=== PATIENT | male | born 1965 | race Caucasian/White ===

== ENCOUNTER 2016-10-19 09:05 | Inpatient (IN) | payer MEDICARE, MEDICAID ==
[~2016-10-19] VITALS: Ht 175.3 cm; Wt 83.1 kg
[2016-10-19] MEDS ORDERED: ASPIRIN 325MG EC TABLET PO ONE (10:00)
[2016-10-19] MEDS ORDERED: MORPHINE SULFATE 4 MG/ML CPJ (NOT FOR IM USE) IV ONE (10:00)
[2016-10-19] MEDS ORDERED: NITROGLYCERIN 0.4MG TABLET SL SL ONE (10:00)
[2016-10-19 10:03] LABS: BASOPHILS % 0.8 % (0.0-2.0); EOSINOPHILS % 2.8 % (0.0-5.0); HEMATOCRIT. 28.7 % (42.0-52.0); HEMOGLOBIN. 9.6 g/dL (14.0-18.0); LYMPHOCYTES % 20.4 % (20.0-50.0); MEAN CORPUSCULAR HEMOGLOBIN 32.5 pg (28.0-32.0); MONOCYTES % 11.9 % (2.0-8.0); NEUTROPHILS % 64.1 % (40.0-76.0); PLATELET 186 x1000/uL (130-400); RED BLOOD CELL COUNT 2.96 mill/uL (4.7-6.1); RED CELL DISTRIBUTION WIDTH 17.3 % (11.6-14.6)
[2016-10-19 10:05] LABS: INR 1.1; PARTIAL THROMBOPLASTIN TIME 34.1 sec (24.0-34.0); PROTHROMBIN TIME 11.5 sec
[2016-10-19 10:14] LABS: CARBON DIOXIDE 24 mEq/L (21-32); CHLORIDE 101 mEq/L (98-107); TROPONIN I 0.04 ng/mL (0.00-0.04)
[2016-10-19 13:00] VITALS: BP 148/91
[2016-10-19] MEDS ORDERED: CLONIDINE 0.1MG TABLET PO PRN (13:45)
[2016-10-19] MEDS ORDERED: DIPHENHYDRAMINE 50MG/ML VIAL IV PRN (13:45)
[2016-10-19] MEDS ORDERED: HYDROCODONE/ACETAMINOPHEN 5/325MG TABLET PO PRN (13:45)
[2016-10-19] MEDS ORDERED: GUAIFENESIN 200MG/10ML SUGAR FREE UDC PO PRN (13:45)
[2016-10-19] MEDS ORDERED: ACETAMINOPHEN 325MG TABLET PO PRN (13:45)
[2016-10-19] MEDS ORDERED: DOCUSATE SODIUM 100MG CAPSULE PO PRN (13:45)
[2016-10-19] MEDS ORDERED: ONDANSETRON HCL 4MG/2ML VIAL IV PRN (13:45)
[2016-10-19] MEDS ORDERED: IPRATROPIUM/ALBUTEROL 0.5-3(2.5)MG/3ML NEB INH PRN (13:45)
[2016-10-19] MEDS ORDERED: MAGNESIUM/ALUMINUM HYDROXIDE/SIMETHICONE 30ML UDC PO PRN (13:45)
[2016-10-19] MEDS ORDERED: SODIUM POLYSTYRENE SULFONATE 15 G/60 ML BOT PO SCH (14:00)
[2016-10-19] MEDS ORDERED: OMEP20CA10 PO (15:10)
[2016-10-19] MEDS ORDERED: ALLO100T PO (15:10)
[2016-10-19] MEDS ORDERED: TAMS0.4C31 PO (15:10)
[2016-10-19] MEDS ORDERED: METO50TA5 PO (15:10)
[2016-10-19] MEDS ORDERED: ZOLP10TA2 PO (15:10)
[2016-10-19] MEDS ORDERED: NEPVIT PO (15:10)
[2016-10-19] MEDS ORDERED: MEGE400O PO ×2 (15:11→15:22)
[2016-10-19] MEDS ORDERED: ASPI-1159 PO (15:21)
[2016-10-19] MEDS ORDERED: CINA30 PO (15:21)
[2016-10-19] MEDS ORDERED: AMLO10TA80 PO (15:21)
[2016-10-19] MEDS ORDERED: SEVE800T8 PO (15:21)
[2016-10-19] MEDS ORDERED: ZOLPIDEM TARTRATE 5MG TABLET PO PRN (15:45)
[2016-10-19 16:00] VITALS: BP 131/78
[2016-10-19] MEDS: SEVELAMER CARBONATE 800 MG TABLET PO SCH (16:58)
[2016-10-19] MEDS: FOLIC ACID/VITAMIN B COMP W-C TABLET PO SCH (16:58)
[2016-10-19 17:26] LABS: TROPONIN I 0.03 ng/mL (0.00-0.04)
[2016-10-19 17:27] LABS: CREATINE KINASE MB FRACTION 1.4 ng/mL (0.5-3.6)
[2016-10-19 20:00] VITALS: BP 155/102
[2016-10-19] MEDS ORDERED: OMEPRAZOLE 20MG CAPSULE EXTENDED RELEASE PO SCH (21:00)
[2016-10-20] VITALS: BP 159/105
[2016-10-20] MEDS: METOPROLOL TARTRATE 50MG TABLET PO SCH ×3 (00:44→20:54)
[2016-10-20] MEDS: AMLODIPINE 5MG TABLET PO SCH ×3 (00:45→20:54)
[2016-10-20 01:46] LABS: CREATINE KINASE MB FRACTION 1.4 ng/mL (0.5-3.6); TROPONIN I 0.03 ng/mL (0.00-0.04)
[2016-10-20 04:00] VITALS: BP 155/97
[2016-10-20 07:05] LABS: BASOPHILS % 0.9 % (0.0-2.0); EOSINOPHILS % 4.6 % (0.0-5.0); HEMATOCRIT. 29.9 % (42.0-52.0); LYMPHOCYTES % 19.2 % (20.0-50.0); MEAN CORPUSCULAR HEMOGLOBIN 32.4 pg (28.0-32.0); MEAN CORPUSCULAR VOLUME 96.6 fL (80.0-94.0); MEAN PLATELET VOLUME 9.5 fl (7.4-10.4); MONOCYTES % 9.7 % (2.0-8.0); NEUTROPHILS % 65.6 % (40.0-76.0); PLATELET 197 x1000/uL (130-400); RED BLOOD CELL COUNT 3.09 mill/uL (4.7-6.1)
[2016-10-20 07:19] LABS: CARBON DIOXIDE 26 mEq/L (21-32); CHLORIDE 96 mEq/L (98-107); T4 FREE 1.41 ng/dL (0.76-1.46)
[2016-10-20] MEDS: MEGESTROL ACETATE 40MG TABLET PO SCH (08:19)
[2016-10-20] MEDS: SEVELAMER CARBONATE 800 MG TABLET PO SCH ×3 (08:19→18:06)
[2016-10-20] MEDS: ALLOPURINOL 100 MG TABLET PO SCH (08:19)
[2016-10-20] MEDS: FOLIC ACID/VITAMIN B COMP W-C TABLET PO SCH (08:19)
[2016-10-20] MEDS: CINACALCET HCL 60MG TABLET PO SCH (08:20)
[2016-10-20] MEDS: FAMOTIDINE 20MG TABLET PO SCH (08:20)
[2016-10-20] MEDS: TAMSULOSIN HCL 0.4MG SR CAPSULE PO SCH (08:21)
[2016-10-20] MEDS: ASPIRIN 81MG EC TABLET PO SCH (08:24)
[2016-10-20 08:44] VITALS: BP 136/79
[2016-10-20] MEDS ORDERED: FOLIC ACID/VITAMIN B COMP W-C TABLET PO SCH (09:00)
[2016-10-20 10:52] VITALS: BP 132/83
[2016-10-20 16:25] VITALS: BP 148/87
[2016-10-20 19:34] VITALS: BP 147/90
[2016-10-20] MEDS ORDERED: EPOETIN ALFA 10000UNITS/ML VIAL SUBCUT SCH (21:00)
[2016-10-21 00:31] VITALS: BP 145/91
[2016-10-21 04:10] VITALS: BP 147/96
[2016-10-21 05:40] LABS: BASOPHILS % 0.9 % (0.0-2.0); EOSINOPHILS % 4.2 % (0.0-5.0); HEMATOCRIT. 29.8 % (42.0-52.0); LYMPHOCYTES % 20.7 % (20.0-50.0); MEAN CORPUSCULAR HEMOGLOBIN 32.6 pg (28.0-32.0); MEAN CORPUSCULAR VOLUME 97.2 fL (80.0-94.0); MEAN PLATELET VOLUME 9.2 fl (7.4-10.4); MONOCYTES % 11.2 % (2.0-8.0); PLATELET 194 x1000/uL (130-400); RED BLOOD CELL COUNT 3.06 mill/uL (4.7-6.1); RED CELL DISTRIBUTION WIDTH 16.7 % (11.6-14.6)
[2016-10-21 08:50] LABS: TOTAL IRON BINDING CAPACITY 132 ug/dL (250-450)
[2016-10-21] MEDS ORDERED: REGADENOSON 0.4 MG/5 ML IV ONE (09:30)
[2016-10-21 10:19] VITALS: BP 153/94
[2016-10-21] MEDS ORDERED: REGADENOSON 0.4 MG/5 ML IV NR (10:30)
[2016-10-21 11:50] LABS: VITAMIN B12 SERUM 1841 pg/mL (211-911)
[2016-10-21 12:00] VITALS: BP 137/69
[2016-10-21 12:05] LABS: FOLIC ACID (FOLATE) SERUM > 20.00 ng/mL (>5.38)
[2016-10-21] MEDS: CINACALCET HCL 60MG TABLET PO SCH (12:21)
[2016-10-21] MEDS: SEVELAMER CARBONATE 800 MG TABLET PO SCH (12:21)
[2016-10-21] MEDS: FOLIC ACID/VITAMIN B COMP W-C TABLET PO SCH (12:21)
[2016-10-21] MEDS: METOPROLOL TARTRATE 50MG TABLET PO SCH (12:22)
[2016-10-21] MEDS: ALLOPURINOL 100 MG TABLET PO SCH (12:23)
[2016-10-21] MEDS: MEGESTROL ACETATE 40MG TABLET PO SCH (12:23)
[2016-10-21] MEDS: AMLODIPINE 5MG TABLET PO SCH (12:23)
[2016-10-21] MEDS: ASPIRIN 81MG EC TABLET PO SCH (12:23)
[2016-10-21] MEDS: TAMSULOSIN HCL 0.4MG SR CAPSULE PO SCH (12:23)
[2016-10-21] MEDS: FAMOTIDINE 20MG TABLET PO SCH (12:23)
[2016-10-21 13:35] LABS: FERRITIN 1545 ng/mL (22-322)
[2016-10-21 13:36] VITALS: BP 137/69
== END 2016-10-21 14:00 | disposition home or self-care (01) | DRG 205 ==
LOC: ER 09:42 → ENRESERV 12:08 → 6WST 13:22
PROVIDERS: ADMIT Internal Medicine; ATTEND Internal Medicine
PROC: 5A1D60Z (ICD-10-PCS; principal; 2016-10-19)
DX: M94.0 Chondrocostal junction syndrome [Tietze] (principal); N18.6 End stage renal disease; E43 Unspecified severe protein-calorie malnutrition; I13.2 Hypertensive heart and chronic kidney disease with heart failure and with stage 5 chronic kidney disease, or end stage renal disease; Z94.0 Kidney transplant status; I24.9 Acute ischemic heart disease, unspecified; Z68.27 Body mass index [BMI] 27.0-27.9, adult; D63.8 Anemia in other chronic diseases classified elsewhere; E78.00 Pure hypercholesterolemia, unspecified; E78.5 Hyperlipidemia, unspecified; E87.5 Hyperkalemia; G47.00 Insomnia, unspecified; H54.41 Blindness, right eye, normal vision left eye; I25.10 Atherosclerotic heart disease of native coronary artery without angina pectoris; I27.2 Other secondary pulmonary hypertension; I48.91 Unspecified atrial fibrillation; I50.9 Heart failure, unspecified; J44.9 Chronic obstructive pulmonary disease, unspecified; I34.0 Nonrheumatic mitral (valve) insufficiency; Z79.82 Long term (current) use of aspirin; Z79.899 Other long term (current) drug therapy; Z86.73 Personal history of transient ischemic attack (TIA), and cerebral infarction without residual deficits; Z90.49 Acquired absence of other specified parts of digestive tract; Z99.2 Dependence on renal dialysis
CPT/HCPCS: 36415; 71010; 78452; 80048; 80053; 82378; 82550; 82553; 82607; 82728; 82746; 83540; 83550; 83615; 83690; 84439; 84443; 84484; 85025; 85044; 85610; 85730; 93005; 93017; 93306; 93970; 96374; 99285; A9500; J2270; J2785; J7030; J7620

== ENCOUNTER 2018-08-13 17:24 | Emergency (ER) | payer MEDICARE, MEDICAID ==
[~2018-08-13] VITALS: Ht 162.6 cm; Wt 80.0 kg
[~2018-08-13 17:24] MED LIST: ALLO100T PO; AMLO10TA80 PO; ASPI-1159 PO; CINA30 PO; LORA1TAB PO; MEGE400O PO; METO-539 PO; NEPVIT PO; OMEP20CA10 PO; SEVE800T8 PO; TAMS0.4C31 PO; ZOLP10TA2 PO
[2018-08-13] MEDS ORDERED: ASPIRIN 81MG TABLET PO ONE (18:45)
[2018-08-13 19:10] LABS: BASOPHILS % 1.5 % (0.0-2.0); EOSINOPHILS % 3.6 % (0.0-5.0); HEMATOCRIT. 35.7 % (42.0-52.0); HEMOGLOBIN. 11.8 g/dL (14.0-18.0); LYMPHOCYTES % 29.2 % (20.0-50.0); MEAN CORPUSCULAR HEMOGLOBIN 33.5 pg (28.0-32.0); MEAN CORPUSCULAR VOLUME 101.1 fL (80.0-94.0); MONOCYTES % 14.3 % (2.0-8.0); NEUTROPHILS % 51.4 % (40.0-76.0); PLATELET 133 x1000/uL (130-400); RED BLOOD CELL COUNT 3.53 mill/uL (4.7-6.1); RED CELL DISTRIBUTION WIDTH 16.8 % (11.6-14.6)
[2018-08-13 19:13] LABS: CHLORIDE 98 mEq/L (98-107)
[2018-08-13 19:14] LABS: INR 1.1; PROTHROMBIN TIME 11.4 sec (9.6-11.0)
[2018-08-13 20:03] VITALS: BP 117/79
== END 2018-08-13 20:11 | disposition home or self-care (01) ==
LOC: ER 17:24
DX: I48.91 Unspecified atrial fibrillation (principal); I11.9 Hypertensive heart disease without heart failure; N28.9 Disorder of kidney and ureter, unspecified; Z98.890 Other specified postprocedural states; Z94.0 Kidney transplant status; Z79.899 Other long term (current) drug therapy
CPT/HCPCS: 36415; 71045; 83880; 84484; 93005; 99284

== ENCOUNTER 2018-10-05 15:39 | Inpatient (IN) | payer MEDICARE, MEDICAID ==
[~2018-10-05] VITALS: Ht 175.3 cm; Wt 78.5 kg
[~2018-10-05 15:39] MED LIST changes: -ASPI-1159 PO; +ASPI-1393 PO; -OMEP20CA10 PO; +OMEP20CA5 PO
[2018-10-05 16:37] LABS: HEMOGLOBIN. 13.6 g/dL (14.0-18.0); MEAN CORPUSCULAR VOLUME 102.4 fL (80.0-94.0); MEAN PLATELET VOLUME 10.7 fl (7.4-10.4); PLATELET 104 x1000/uL (130-400); RED CELL DISTRIBUTION WIDTH 15.3 % (11.6-14.6)
[2018-10-05 16:42] LABS: CHLORIDE 101 mEq/L (98-107)
[2018-10-05 16:43] LABS: INR 1.1; PARTIAL THROMBOPLASTIN TIME 32.7 sec (23.4-31.0); PROTHROMBIN TIME 11.8 sec (9.6-11.0)
[2018-10-05 16:46] LABS: ETHANOL BLOOD < 10 mg/dL
[2018-10-05 16:49] LABS: LDL CHOLESTEROL 120 mg/dL (5-100)
[2018-10-05] MEDS ORDERED: INSULIN REGULAR (HUMULIN R) 300UNITS/3ML IV ONE (17:00)
[2018-10-05] MEDS ORDERED: DEXTROSE 50% WATER 50ML SYRINGE IV ONE (17:00)
[2018-10-05 17:22] LABS: PLATELET ESTIMATE DECREASED
[2018-10-05 17:40] LABS: PHOSPHORUS 5.2 mg/dL (2.5-4.9)
[2018-10-05] MEDS ORDERED: LORAZEPAM 0.5MG TABLET PO PRN (20:45)
[2018-10-05] MEDS ORDERED: ONDANSETRON HCL 4MG/2ML INJ IV PRN (20:45)
[2018-10-05] MEDS ORDERED: IPRATROPIUM/ALBUTEROL 0.5-3(2.5)MG/3ML NEB INH PRN (20:45)
[2018-10-05] MEDS ORDERED: HYDROCODONE/ACETAMINOPHEN 5/325MG TABLET PO PRN (20:45)
[2018-10-05] MEDS ORDERED: DOCUSATE SODIUM 100MG CAPSULE PO PRN (20:45)
[2018-10-05] MEDS ORDERED: ACETAMINOPHEN 325MG TABLET PO PRN (20:45)
[2018-10-05] MEDS ORDERED: CLONIDINE 0.1MG TABLET PO PRN (20:45)
[2018-10-05 21:40] VITALS: BP 154/104
[2018-10-06] VITALS: BP 111/56
[2018-10-06 04:00] VITALS: BP 127/87
[2018-10-06] MEDS ORDERED: CINA90TA4 PO (04:01)
[2018-10-06] MEDS ORDERED: APIX2.5T PO (04:01)
[2018-10-06] MEDS ORDERED: OMEP20TA2 PO (04:01)
[2018-10-06] MEDS ORDERED: ALPR-340 PO (04:01)
[2018-10-06] MEDS ORDERED: TAMS-11 PO (04:01)
[2018-10-06] MEDS ORDERED: LUBI8CAP PO (04:01)
[2018-10-06] MEDS ORDERED: ALLO300T2 PO (04:01)
[2018-10-06] MEDS ORDERED: ONDA4TAB11 PO (04:02)
[2018-10-06 06:19] LABS: EOSINOPHILS % 2.3 % (0.0-5.0); HEMATOCRIT. 38.9 % (42.0-52.0); HEMOGLOBIN. 12.6 g/dL (14.0-18.0); LYMPHOCYTES % 29.8 % (20.0-50.0); MEAN CORPUSCULAR HEMOGLOBIN 33.5 pg (28.0-32.0); MEAN CORPUSCULAR VOLUME 103.2 fL (80.0-94.0); MEAN PLATELET VOLUME 11.1 fl (7.4-10.4); MONOCYTES % 12.4 % (2.0-8.0); NEUTROPHILS % 54.5 % (40.0-76.0); PLATELET 94 x1000/uL (130-400); RED BLOOD CELL COUNT 3.77 mill/uL (4.7-6.1); RED CELL DISTRIBUTION WIDTH 15.5 % (11.6-14.6)
[2018-10-06] MEDS ORDERED: INSULIN REGULAR (HUMULIN R) UD 100 UNITS/ML SYR IV NR (07:16)
[2018-10-06] MEDS ORDERED: DEXTROSE 50% WATER 50ML SYRINGE IV NR (07:16)
[2018-10-06] MEDS ORDERED: SODIUM BICARBONATE 8.4% 1 MEQ/ML 50ML SYR IV NR (07:16)
[2018-10-06 08:00] VITALS: BP 128/84
[2018-10-06] MEDS: ENOXAPARIN 80MG/0.8ML SYR SUBCUT SCH ×2 (11:30→18:17)
[2018-10-06 12:00] VITALS: BP 108/64
[2018-10-06 12:33] LABS: HEPATITIS B SURFACE ANTIGEN NEGATIVE
[2018-10-06 13:03] LABS: HEPATITIS A AB IGM NEGATIVE (NEGATIVE)
[2018-10-06 16:00] VITALS: BP 112/72
[2018-10-06 20:00] VITALS: BP 108/55
[2018-10-06] MEDS ORDERED: SODIUM POLYSTYRENE SULFONATE 15 G/60 ML BOT PO NR (22:00)
[2018-10-07] VITALS: BP 130/82
[2018-10-07 04:00] VITALS: BP 111/73
[2018-10-07 07:39] LABS: EOSINOPHILS % 3.3 % (0.0-5.0); HEMATOCRIT. 37.3 % (42.0-52.0); HEMOGLOBIN. 12.6 g/dL (14.0-18.0); MEAN CORPUSCULAR HEMOGLOBIN 34.1 pg (28.0-32.0); MEAN CORPUSCULAR VOLUME 101.4 fL (80.0-94.0); MEAN PLATELET VOLUME 11.1 fl (7.4-10.4); NEUTROPHILS % 49.7 % (40.0-76.0); PLATELET 97 x1000/uL (130-400); RED BLOOD CELL COUNT 3.68 mill/uL (4.7-6.1)
[2018-10-07] MEDS ORDERED: OMEPRAZOLE 20MG CAPSULE EXTENDED RELEASE PO SCH (07:40)
[2018-10-07 08:00] VITALS: BP 132/89
[2018-10-07] MEDS: SEVELAMER CARBONATE 800 MG TABLET PO SCH ×3 (08:45→18:25)
[2018-10-07] MEDS: METOPROLOL TARTRATE 25MG TABLET PO SCH ×2 (08:46→21:00)
[2018-10-07] MEDS: ENOXAPARIN 80MG/0.8ML SYR SUBCUT SCH (08:47)
[2018-10-07] MEDS ORDERED: APIXABAN 2.5 MG TABLET PO SCH ×2 (09:00→17:00)
[2018-10-07] MEDS ORDERED: CINACALCET HCL 90MG TABLET PO SCH (09:00)
[2018-10-07] MEDS ORDERED: ALLOPURINOL 100 MG TABLET PO SCH (09:00)
[2018-10-07 12:00] VITALS: BP 123/90
[2018-10-07] MEDS ORDERED: IOHEXOL-350 100 ML BOTTLE ONE (12:39)
[2018-10-07] MEDS ORDERED: DILTIAZEM HCL 5MG/ML 5ML VIAL IV PRN (13:45)
[2018-10-07 16:00] VITALS: BP 106/74
[2018-10-07 20:14] VITALS: BP 102/64
[2018-10-07] MEDS ORDERED: TAMSULOSIN HCL 0.4MG SR CAPSULE PO SCH (21:00)
[2018-10-07] MEDS ORDERED: ALPRAZOLAM 0.5 MG TABLET PO SCH (21:00)
== END 2018-10-07 21:00 | disposition home or self-care (01) | DRG 69 ==
LOC: ER 15:39 → 7WST 17:42 → EDBEDREQSVC 17:46 → EDBEDREQ 17:46 → EDBEDREQTM 17:46 → ENRESERV 20:19 → 7WST 22:58
PROVIDERS: ADMIT Internal Medicine; ATTEND Internal Medicine
PROC: 4A00X4Z Measurement of Central Nervous Electrical Activity, External Approach (ICD-10-PCS; principal; 2018-10-06)
PROC: 5A1D70Z Performance of Urinary Filtration, Intermittent, Less than 6 Hours Per Day (ICD-10-PCS; 2018-10-06)
PROC: 5A1D70Z Performance of Urinary Filtration, Intermittent, Less than 6 Hours Per Day (ICD-10-PCS; 2018-10-07)
DX: G45.9 Transient cerebral ischemic attack, unspecified (principal); N18.6 End stage renal disease; Z94.0 Kidney transplant status; I12.0 Hypertensive chronic kidney disease with stage 5 chronic kidney disease or end stage renal disease; G43.909 Migraine, unspecified, not intractable, without status migrainosus; R29.810 Facial weakness; D53.9 Nutritional anemia, unspecified; E78.5 Hyperlipidemia, unspecified; I48.2 Chronic atrial fibrillation; N40.0 Benign prostatic hyperplasia without lower urinary tract symptoms; E87.5 Hyperkalemia; G47.00 Insomnia, unspecified; F41.9 Anxiety disorder, unspecified; I25.10 Atherosclerotic heart disease of native coronary artery without angina pectoris; D47.3 Essential (hemorrhagic) thrombocythemia; I05.0 Rheumatic mitral stenosis; Z86.73 Personal history of transient ischemic attack (TIA), and cerebral infarction without residual deficits; Z99.2 Dependence on renal dialysis; Z79.01 Long term (current) use of anticoagulants; Z79.82 Long term (current) use of aspirin; Z79.899 Other long term (current) drug therapy
CPT/HCPCS: 36415; 70551; 71045; 71275; 80048; 80061; 80076; 80320; 82962; 83036; 83721; 83735; 84100; 84132; 84484; 86705; 86709; 86803; 87340; 93005; 93306; 93880; 95816; 96374; 99285; J1650; J1815; J3490; Q9967; G0480

== ENCOUNTER 2019-11-16 14:06 | Emergency (ER) | payer MEDICARE, MEDICAID ==
[~2019-11-16] VITALS: Ht 175.3 cm; Wt 77.5 kg
[~2019-11-16 14:06] MED LIST changes: -ALLO100T PO; +ALLO300T2 PO; +ALPR-340 PO; -AMLO10TA80 PO; +APIX2.5T PO; -ASPI-1393 PO; -CINA30 PO; +CINA90TA4 PO; -LORA1TAB PO; +LUBI8CAP PO; -MEGE400O PO; -NEPVIT PO; -OMEP20CA5 PO; +OMEP20TA2 PO; +ONDA4TAB11 PO; +TAMS-11 PO; -TAMS0.4C31 PO; -ZOLP10TA2 PO
[2019-11-16] MEDS ORDERED: HYDROCODONE/ACETAMINOPHEN 5/325MG TABLET PO ONE (15:00)
[2019-11-16 17:07] VITALS: BP 106/71
== END 2019-11-16 17:09 | disposition home or self-care (01) ==
LOC: ER 14:06
DX: M25.511 Pain in right shoulder (principal); I13.11 Hypertensive heart and chronic kidney disease without heart failure, with stage 5 chronic kidney disease, or end stage renal disease; N18.6 End stage renal disease; Z99.2 Dependence on renal dialysis; Z94.0 Kidney transplant status
CPT/HCPCS: 93005; 99283

== ENCOUNTER 2022-10-24 11:21 | Inpatient (IN) | payer MEDICARE, MEDICAID ==
[~2022-10-24] VITALS: Ht 175.3 cm; Wt 67.1 kg
[2022-10-24 08:00] VITALS: BP 155/85; PULSE 82; RESP 15; TEMP 99
[~2022-10-24 11:21] MED LIST changes: -OMEP20TA2 PO; +OMEP20TA23 PO
[2022-10-24] MEDS ORDERED: ASPIRIN 81MG TABLET PO ONE (12:15)
[2022-10-24 12:42] LABS: HEMATOCRIT. 37.3 % (42.0-52.0); HEMOGLOBIN. 12.5 g/dL (14.0-18.0); LYMPHOCYTES % 11.6 % (20.0-50.0); MEAN CORPUSCULAR HEMOGLOBIN 33.6 pg (28.0-32.0); MEAN CORPUSCULAR VOLUME 100.1 fL (80.0-94.0); MEAN PLATELET VOLUME 12.3 fl (7.4-10.4); MONOCYTES % 14.8 % (2.0-8.0); NEUTROPHILS % 68.6 % (40.0-76.0); PLATELET 110 x1000/uL (130-400); RED BLOOD CELL COUNT 3.73 mill/uL (4.7-6.1); RED CELL DISTRIBUTION WIDTH 15.1 % (11.6-14.6)
[2022-10-24 12:56] LABS: CHLORIDE 95 mEq/L (98-107)
[2022-10-24] MEDS ORDERED: NITROGLYCERIN 0.4MG TABLET SL SL ONE (13:45)
[2022-10-24 20:00] VITALS: BP 150/85; PULSE 88; RESP 12; TEMP 99
[2022-10-24] MEDS ORDERED: ACETAMINOPHEN 325MG TABLET PO PRN (20:45)
[2022-10-24] MEDS ORDERED: DIPHENHYDRAMINE 50MG/ML VIAL IV PRN (20:45)
[2022-10-24] MEDS ORDERED: ZOLPIDEM TARTRATE 5MG TABLET PO PRN (20:45)
[2022-10-24] MEDS ORDERED: CLONIDINE 0.1MG TABLET PO PRN (20:45)
[2022-10-24] MEDS ORDERED: IPRATROPIUM/ALBUTEROL 0.5-3(2.5)MG/3ML NEB HHN PRN (20:45)
[2022-10-24] MEDS ORDERED: ONDANSETRON HCL 4MG/2ML INJ IV PRN (20:45)
[2022-10-24] MEDS ORDERED: GUAIFENESIN 200MG/10ML SUGAR FREE UDC PO PRN (20:45)
[2022-10-24] MEDS: PANTOPRAZOLE 40MG DR TABLET PO SCH (21:28)
[2022-10-24] MEDS: METOPROLOL TARTRATE 50MG TABLET PO SCH (21:29)
[2022-10-24] MEDS: SERTRALINE HCL 25MG TABLET PO SCH (21:30)
[2022-10-24] MEDS: ATORVASTATIN CALCIUM 10MG TABLET PO SCH (21:30)
[2022-10-24] MEDS: TIZANIDINE HCL 2MG TABLET PO SCH (21:31)
[2022-10-24] MEDS: SODIUM CHLORIDE 0.9% INJ 3ML FLUSH IVF SCH (21:31)
[2022-10-24 22:00] VITALS: BP 132/74; PULSE 74; RESP 16; TEMP 98.6
[2022-10-25] VITALS (9 sets, daily range): BP systolic 98–130; BP diastolic 61–87; PULSE 55–70; RESP 12–23; TEMP 98–99.4
[2022-10-25 01:17] LABS: HEPATITIS B SURFACE ANTIGEN NEGATIVE
[2022-10-25] MEDS: PANTOPRAZOLE 40MG DR TABLET PO SCH ×2 (06:27→21:37)
[2022-10-25] MEDS: SODIUM CHLORIDE 0.9% INJ 3ML FLUSH IVF SCH ×3 (06:28→21:38)
[2022-10-25] MEDS: SEVELAMER CARBONATE 800 MG TABLET PO SCH ×3 (07:46→18:00)
[2022-10-25] MEDS: TIZANIDINE HCL 2MG TABLET PO SCH ×2 (07:46→21:37)
[2022-10-25] MEDS: METOPROLOL TARTRATE 50MG TABLET PO SCH ×2 (07:48→21:00)
[2022-10-25] MEDS: TAMSULOSIN HCL 0.4MG SR CAPSULE PO SCH (09:00)
[2022-10-25] MEDS: APIXABAN 2.5 MG TABLET PO SCH ×2 (10:02→18:00)
[2022-10-25] MEDS: FOLIC ACID/VITAMIN B COMP W-C TABLET PO SCH (10:02)
[2022-10-25] MEDS: SERTRALINE HCL 25MG TABLET PO SCH (21:36)
[2022-10-25] MEDS: ATORVASTATIN CALCIUM 10MG TABLET PO SCH (21:37)
[2022-10-25] MEDS: ACETAMINOPHEN 325MG TABLET PO PRN ×3 (21:37→23:03)
[2022-10-26] VITALS (8 sets, daily range): BP systolic 93–136; BP diastolic 62–94; PULSE 54–81; RESP 14–22; TEMP 97.4–98; O2SAT 100
[2022-10-26] MEDS: PANTOPRAZOLE 40MG DR TABLET PO SCH (06:58)
[2022-10-26] MEDS: SODIUM CHLORIDE 0.9% INJ 3ML FLUSH IVF SCH ×2 (06:58→14:13)
[2022-10-26] MEDS: METOPROLOL TARTRATE 50MG TABLET PO SCH (09:12)
[2022-10-26] MEDS: APIXABAN 2.5 MG TABLET PO SCH (09:12)
[2022-10-26] MEDS: TIZANIDINE HCL 2MG TABLET PO SCH (09:12)
[2022-10-26] MEDS: TAMSULOSIN HCL 0.4MG SR CAPSULE PO SCH (09:13)
[2022-10-26] MEDS: FOLIC ACID/VITAMIN B COMP W-C TABLET PO SCH (09:13)
[2022-10-26] MEDS: SEVELAMER CARBONATE 800 MG TABLET PO SCH ×2 (09:13→12:18)
[2022-10-26 12:36] LABS: HEMATOCRIT 34.1 % (42.0-52.0); HEMOGLOBIN 11.7 g/dL (14.0-18.0); MEAN CORPUSCULAR HEMOGLOBIN 34.1 pg (28.0-32.0); MEAN CORPUSCULAR VOLUME 99.7 fL (80.0-94.0); PLATELET 93 x1000/uL (130-400); RED BLOOD CELL COUNT 3.42 mill/uL (4.7-6.1); RED CELL DISTRIBUTION WIDTH 14.9 % (11.6-14.6)
[2022-10-26 15:03] LABS: HEPATITIS B SURFACE ANTIGEN NEGATIVE
[2022-10-26] MEDS ORDERED: METOPROLOL TARTRATE 25MG TABLET PO SCH (21:00)
== END 2022-10-26 16:50 | disposition home or self-care (01) | DRG 205 ==
LOC: ER 11:21 → 3WST 13:56 → EDBEDREQ 13:58 → EDBEDREQTM 13:58 → EDBEDREQ 13:59
PROVIDERS: ADMIT Internal Medicine; ATTEND Internal Medicine
PROC: 5A1D70Z Performance of Urinary Filtration, Intermittent, Less than 6 Hours Per Day (ICD-10-PCS; principal; 2022-10-26)
DX: M94.0 Chondrocostal junction syndrome [Tietze] (principal); N18.6 End stage renal disease; I48.11 Longstanding persistent atrial fibrillation; I13.11 Hypertensive heart and chronic kidney disease without heart failure, with stage 5 chronic kidney disease, or end stage renal disease; R07.89 Other chest pain; E11.22 Type 2 diabetes mellitus with diabetic chronic kidney disease; D63.1 Anemia in chronic kidney disease; Z99.2 Dependence on renal dialysis
CPT/HCPCS: 36415; 71045; 80048; 80053; 82962; 84443; 84484; 85025; 85027; 85379; 86705; 86709; 86803; 87340; 93005; 93306; 99291; J2405

== ENCOUNTER 2022-11-27 15:12 | Emergency (ER) | payer MEDICARE, MEDICAID ==
[~2022-11-27] VITALS: Ht 175.3 cm; Wt 75.0 kg
[2022-11-27 15:46] VITALS: BP 124/78; PULSE 75; RESP 18; O2SAT 100
[2022-11-27 17:21] LABS: BASOPHILS % 0.9 % (0.0-2.0); DIFFERENTIAL COMMENT 0; EOSINOPHILS % 6.8 % (0.0-5.0); HEMATOCRIT. 35.3 % (42.0-52.0); HEMOGLOBIN. 11.4 g/dL (14.0-18.0); MEAN CORPUSCULAR HEMOGLOBIN 32.8 pg (28.0-32.0); MEAN CORPUSCULAR HGB CONC 32.3 g/dL (31.0-37.0); MEAN CORPUSCULAR VOLUME 101.5 fL (80.0-94.0); MONOCYTES % 11.2 % (2.0-8.0); NEUTROPHILS % 62.1 % (40.0-76.0); PLATELET 115 x1000/uL (130-400); RED BLOOD CELL COUNT 3.48 mill/uL (4.7-6.1); RED CELL DISTRIBUTION WIDTH 15.6 % (11.6-14.6); WHITE BLOOD COUNT 5.8 x1000/uL (4.5-11.0)
[2022-11-27 17:28] LABS: CHLORIDE 97 mEq/L (98-107); INDEX HEMOLYSI 1 (1-3); INDEX ICTERIC 1 (1-4); INDEX LIPEMIC 1 (1-3); POTASSIUM 5.7 mEq/L (3.5-5.1); SODIUM 136 mEq/L (136-145)
[2022-11-27 17:30] VITALS: TEMP 97.9
[2022-11-27] MEDS ORDERED: ACETAMINOPHEN 325MG TABLET PO ONE (17:30)
[2022-11-27 17:37] LABS: ALANINE AMINOTRANSFERASE 39 IU/L (13-61); ALBUMIN 3.6 g/dL (3.4-5.0); ASPARTATE AMINOTRANSFERASE 27 IU/L (15-37); BILIRUBIN TOTAL 0.5 mg/dL (0.1-1.0); CALCIUM 9.1 mg/dL (8.5-10.1); CARBON DIOXIDE 29 mEq/L (21-32); GLUCOSE 93 mg/dL (70-105); PROTEIN TOTAL 7.8 g/dL (6.0-8.3); UREA NITROGEN BLOOD 59 mg/dL (7-21)
[2022-11-27 17:59] LABS: CREATININE 8.7 mg/dL (0.6-1.3)
== END 2022-11-27 19:42 | disposition left against medical advice (07) ==
LOC: ER 15:12
DX: R53.1 Weakness (principal); E87.5 Hyperkalemia; I12.0 Hypertensive chronic kidney disease with stage 5 chronic kidney disease or end stage renal disease; N18.6 End stage renal disease; E78.00 Pure hypercholesterolemia, unspecified; Z79.899 Other long term (current) drug therapy; Z20.822 Contact with and (suspected) exposure to COVID-19
CPT/HCPCS: 99285; 71045; 87426; 80053; 85025; 36415; 93005; C9803

== ENCOUNTER 2023-08-10 01:51 | Inpatient (IN) | payer MEDICARE, MEDICAID ==
[~2023-08-10] VITALS: Ht 175.3 cm; Wt 83.9 kg
[2023-08-10] VITALS (8 sets, daily range): BP systolic 112–130; BP diastolic 55–87; PULSE 57–87; RESP 18–22; TEMP 97–97.5; O2SAT 97
[2023-08-10 03:37] LABS: BASOPHILS % 0.6 % (0.0-2.0); EOSINOPHILS % 2.8 % (0.0-5.0); HEMATOCRIT. 29.8 % (42.0-52.0); LYMPHOCYTES % 11.2 % (20.0-50.0); MEAN CORPUSCULAR HEMOGLOBIN 33.3 pg (28.0-32.0); MEAN CORPUSCULAR HGB CONC 33.5 g/dL (31.0-37.0); MEAN CORPUSCULAR VOLUME 99.4 fL (80.0-94.0); MEAN PLATELET VOLUME 9.8 fl (7.4-10.4); MONOCYTES % 6.2 % (2.0-8.0); NEUTROPHILS % 79.2 % (40.0-76.0); PLATELET 123 x1000/uL (130-400); RED CELL DISTRIBUTION WIDTH 15.4 % (11.6-14.6)
[2023-08-10 03:59] LABS: CHLORIDE 94 mEq/L (98-107); SODIUM 137 mEq/L (136-145)
[2023-08-10 04:00] LABS: CARBON DIOXIDE 32 mEq/L (21-32)
[2023-08-10 04:01] LABS: CALCIUM 11.4 mg/dL (8.7-10.4)
[2023-08-10 04:06] LABS: GLUCOSE 83 mg/dL (70-105); UREA NITROGEN BLOOD 79 mg/dL (9-23)
[2023-08-10 04:07] LABS: ALANINE AMINOTRANSFERASE 34 IU/L (10-49); ALBUMIN 4.3 g/dL (3.2-4.8); ASPARTATE AMINOTRANSFERASE 42 IU/L (<34)
[2023-08-10 04:08] LABS: BILIRUBIN DIRECT 0.2 mg/dL (<=3.0); BILIRUBIN TOTAL 0.3 mg/dL (0.1-1.0); PROTEIN TOTAL 7.6 g/dL (6.0-8.3)
[2023-08-10 04:37] LABS: ETHANOL BLOOD < 10 mg/dL (<10)
[2023-08-10 04:40] LABS: POTASSIUM 6.5 mEq/L (3.5-5.1)
[2023-08-10 04:42] LABS: CREATININE 9.2 mg/dL (0.6-1.3)
[2023-08-10 04:43] LABS: TROPONIN I HIGH SENSITIVITY 64 ng/L (3.0-53)
[2023-08-10] MEDS: ONDANSETRON HCL 4MG/2ML INJ IV NR (05:33)
[2023-08-10] MEDS: MORPHINE SULFATE 4 MG/ML INJ (FOR IV/IM USE) IV NR (05:33)
[2023-08-10] MEDS: MORPHINE SULFATE 4 MG/ML INJ (FOR IV/IM USE) IV STA (05:42)
[2023-08-10] MEDS: ONDANSETRON HCL 4MG/2ML INJ IV STA (05:42)
[2023-08-10] MEDS ORDERED: ALBUTEROL (0.083%) 2.5MG/3ML NEB HHN NR (05:45)
[2023-08-10] MEDS: CALCIUM CHLORIDE 1GM/10ML SYR IV NR (07:48)
[2023-08-10] MEDS: SODIUM BICARBONATE 8.4% 1 MEQ/ML 50ML SYR IV NR (07:48)
[2023-08-10] MEDS: DEXTROSE 50% WATER 50ML SYRINGE IV NR (07:48)
[2023-08-10] MEDS: INSULIN REGULAR (HUMULIN R) 300UNITS/3ML VIAL IV NR (08:01)
[2023-08-10] MEDS: ALBUTEROL (0.083%) 2.5MG/3ML NEB HHN NR (10:35)
[2023-08-10 13:05] LABS: HEPATITIS B CORE AB IGM NEGATIVE (Negative)
[2023-08-10 13:06] LABS: HEPATITIS C AB NON REACTIVE (Neg) (Negative)
[2023-08-10 13:17] LABS: HEPATITIS B SURFACE ANTIGEN NEGATIVE (Negative)
[2023-08-10 14:04] LABS: HEPATITIS A AB IGM NEGATIVE (Negative)
[2023-08-10] MEDS: DOCUSATE SODIUM 250MG CAPSULE PO SCH (15:54)
[2023-08-10] MEDS: LACTULOSE 20G/30ML UDC PO NR (15:54)
[2023-08-10] MEDS ORDERED: ACETAMINOPHEN 325MG TABLET PO PRN (16:45)
[2023-08-10] MEDS ORDERED: CLONIDINE 0.1MG TABLET PO PRN (16:45)
[2023-08-10] MEDS ORDERED: ONDANSETRON 4MG ODT PO PRN (16:45)
[2023-08-10] MEDS: ALLOPURINOL 300 MG TABLET PO SCH (18:27)
[2023-08-10] MEDS: PANTOPRAZOLE 40MG DR TABLET PO SCH (18:27)
[2023-08-10] MEDS: SEVELAMER CARBONATE 800 MG TABLET PO SCH (18:27)
[2023-08-10] MEDS: APIXABAN 2.5 MG TABLET PO SCH (18:28)
[2023-08-10 19:39] LABS: POTASSIUM 4.5 mEq/L (3.5-5.1)
[2023-08-10] MEDS ORDERED: PANTOPRAZOLE 40MG DR TABLET PO SCH (21:00)
[2023-08-10] MEDS: SENNOSIDES/DOCUSATE SOD 8.6/50MG TABLET PO SCH (21:46)
[2023-08-10] MEDS: TAMSULOSIN HCL 0.4MG SR CAPSULE PO SCH (21:46)
[2023-08-11] VITALS (15 sets, daily range): BP systolic 17–137; BP diastolic 58–86; PULSE 52–91; RESP 18–20; TEMP 96.6–98.8
[2023-08-11 00:41] LABS: CREATINE KINASE MB FRACTION 2.7 ng/mL (0.5-3.6)
[2023-08-11 07:36] LABS: INR 1.1; PROTHROMBIN TIME 12.1 sec (9.6-11.0)
[2023-08-11 07:37] LABS: BASOPHILS % 0.9 % (0.0-2.0); HEMATOCRIT. 27.9 % (42.0-52.0); HEMOGLOBIN. 9.5 g/dL (14.0-18.0); LYMPHOCYTES % 18.3 % (20.0-50.0); MEAN CORPUSCULAR HEMOGLOBIN 33.7 pg (28.0-32.0); MEAN CORPUSCULAR HGB CONC 33.9 g/dL (31.0-37.0); MEAN CORPUSCULAR VOLUME 99.3 fL (80.0-94.0); MEAN PLATELET VOLUME 10.6 fl (7.4-10.4); MONOCYTES % 8.4 % (2.0-8.0); NEUTROPHILS % 67.4 % (40.0-76.0); PLATELET 108 x1000/uL (130-400); RED BLOOD CELL COUNT 2.81 mill/uL (4.7-6.1); RED CELL DISTRIBUTION WIDTH 15.4 % (11.6-14.6); WHITE BLOOD COUNT 5.8 x1000/uL (4.5-11.0)
[2023-08-11 07:40] LABS: CALCIUM 10.1 mg/dL (8.7-10.4); CHLORIDE 94 mEq/L (98-107); POTASSIUM 5.5 mEq/L (3.5-5.1); SODIUM 135 mEq/L (136-145)
[2023-08-11 07:41] LABS: CARBON DIOXIDE 31 mEq/L (21-32)
[2023-08-11 07:45] LABS: CREATINE KINASE MB FRACTION 2.5 ng/mL (0.5-3.6); IRON 49 ug/dL (65-175)
[2023-08-11 07:46] LABS: GLUCOSE 84 mg/dL (70-105); TRIGLYCERIDE 57 mg/dL (0-150); UREA NITROGEN BLOOD 54 mg/dL (9-23)
[2023-08-11 07:48] LABS: BILIRUBIN TOTAL 0.4 mg/dL (0.1-1.0); TOTAL IRON BINDING CAPACITY 172 ug/dl (250-425)
[2023-08-11 07:50] LABS: FERRITIN 1244 ng/mL (22-322)
[2023-08-11 07:51] LABS: VITAMIN B12 SERUM 1602 pg/mL (211-911)
[2023-08-11 08:05] LABS: FOLIC ACID (FOLATE) SERUM > 20.00 ng/mL (>5.38)
[2023-08-11] MEDS: CINACALCET HCL 90MG TABLET PO SCH (09:27)
[2023-08-11] MEDS: METOPROLOL TARTRATE 50MG TABLET PO SCH (09:28)
[2023-08-11] MEDS: ONDANSETRON HCL 4MG/2ML INJ IV PRN (14:49)
[2023-08-11] MEDS: MECLIZINE 25MG TABLET PO NR (14:54)
[2023-08-11] MEDS: ALPRAZOLAM 0.25 MG TABLET PO PRN (22:45)
[2023-08-11] MEDS: EPOETIN ALFA 4000UNITS/ML VIAL SUBCUT SCH (22:46)
[2023-08-12] VITALS: BP 136/86; PULSE 52; RESP 18; TEMP 96.4
[2023-08-12 04:00] VITALS: BP 122/72; PULSE 56; RESP 20; TEMP 97.2
[2023-08-12 06:48] LABS: HEMATOCRIT 29.6 % (42.0-52.0); MEAN CORPUSCULAR HEMOGLOBIN 33.7 pg (28.0-32.0); MEAN CORPUSCULAR HGB CONC 33.7 g/dL (31.0-37.0); MEAN CORPUSCULAR VOLUME 100.1 fL (80.0-94.0); PLATELET 106 x1000/uL (130-400); RED BLOOD CELL COUNT 2.95 mill/uL (4.7-6.1); RED CELL DISTRIBUTION WIDTH 15.8 % (11.6-14.6)
[2023-08-12 07:05] LABS: POTASSIUM 4.8 mEq/L (3.5-5.1)
[2023-08-12 07:24] LABS: CREATININE 6.4 mg/dL (0.6-1.3)
[2023-08-12 08:00] VITALS: BP 107/67; PULSE 54; RESP 18; TEMP 97.7
[2023-08-12] MEDS ORDERED: OMEP20TA23 PO (12:45)
[2023-08-12 15:00] VITALS: BP_SYST 103; BP_SYST 82; BP_SYST 90; BP_DIAS 52; BP_DIAS 58; BP_DIAS 62; PULSE 56; PULSE 57; PULSE 59; RESP 17; RESP 18
[2023-08-12] MEDS: FLUDROCORTISONE ACETATE 0.1MG TABLET PO SCH (16:48)
[2023-08-12] MEDS: SODIUM CHLORIDE 0.9% 250 ML IV ONE (16:49)
[2023-08-12 20:00] VITALS: BP 118/74; PULSE 68; RESP 18; TEMP 97.1
[2023-08-13] VITALS (10 sets, daily range): BP systolic 97–125; BP diastolic 60–82; PULSE 55–71; RESP 17–21; TEMP 97.8–98.2; O2SAT 97
[2023-08-13 08:11] LABS: CALCIUM 9.5 mg/dL (8.7-10.4); CARBON DIOXIDE 23 mEq/L (21-32); CHLORIDE 96 mEq/L (98-107); SODIUM 133 mEq/L (136-145)
[2023-08-13 08:16] LABS: GLUCOSE 65 mg/dL (70-105); UREA NITROGEN BLOOD 39 mg/dL (9-23)
[2023-08-13 08:18] LABS: PHOSPHORUS 4.2 mg/dL (2.5-4.9)
[2023-08-13 08:19] LABS: CREATININE 8.3 mg/dL (0.6-1.3)
[2023-08-13] MEDS: SODIUM POLYSTYRENE SULFONATE 15 G/60 ML BOT PO NR (12:17)
[2023-08-13 13:03] LABS: DIFFERENTIAL COMMENT 0; HEMATOCRIT. 32.1 % (42.0-52.0); HEMOGLOBIN. 10.6 g/dL (14.0-18.0); LYMPHOCYTES % 17.9 % (20.0-50.0); MEAN CORPUSCULAR HEMOGLOBIN 33.1 pg (28.0-32.0); MEAN CORPUSCULAR HGB CONC 32.9 g/dL (31.0-37.0); MEAN CORPUSCULAR VOLUME 100.5 fL (80.0-94.0); MEAN PLATELET VOLUME 10.1 fl (7.4-10.4); MONOCYTES % 12.7 % (2.0-8.0); NEUTROPHILS % 64.4 % (40.0-76.0); PLATELET 108 x1000/uL (130-400); RED BLOOD CELL COUNT 3.19 mill/uL (4.7-6.1); RED CELL DISTRIBUTION WIDTH 15.9 % (11.6-14.6)
[2023-08-13 13:09] LABS: WHITE BLOOD COUNT 5.5 x1000/uL (4.5-11.0)
[2023-08-13] MEDS ORDERED: FLOR MT (15:08)
== END 2023-08-13 15:40 | disposition home or self-care (01) | DRG 391 ==
LOC: ER 02:03 → 5WST 05:46 → 8WST 18:05
PROVIDERS: ADMIT Internal Medicine; ATTEND Internal Medicine
PROC: 5A1D70Z Performance of Urinary Filtration, Intermittent, Less than 6 Hours Per Day (ICD-10-PCS; principal; 2023-08-10)
PROC: 5A1D70Z Performance of Urinary Filtration, Intermittent, Less than 6 Hours Per Day (ICD-10-PCS; 2023-08-11)
PROC: 5A1D70Z Performance of Urinary Filtration, Intermittent, Less than 6 Hours Per Day (ICD-10-PCS; 2023-08-13)
DX: K52.9 Noninfective gastroenteritis and colitis, unspecified (principal); N18.6 End stage renal disease; R18.8 Other ascites; Z94.0 Kidney transplant status; I12.0 Hypertensive chronic kidney disease with stage 5 chronic kidney disease or end stage renal disease; E87.5 Hyperkalemia; D50.9 Iron deficiency anemia, unspecified; Z99.2 Dependence on renal dialysis; E11.22 Type 2 diabetes mellitus with diabetic chronic kidney disease; I48.0 Paroxysmal atrial fibrillation; K74.60 Unspecified cirrhosis of liver; I25.10 Atherosclerotic heart disease of native coronary artery without angina pectoris; Z90.49 Acquired absence of other specified parts of digestive tract; Z79.01 Long term (current) use of anticoagulants; E78.00 Pure hypercholesterolemia, unspecified; R53.81 Other malaise; E11.40 Type 2 diabetes mellitus with diabetic neuropathy, unspecified; K27.9 Peptic ulcer, site unspecified, unspecified as acute or chronic, without hemorrhage or perforation; R26.9 Unspecified abnormalities of gait and mobility; K57.30 Diverticulosis of large intestine without perforation or abscess without bleeding
CPT/HCPCS: 36415; 71045; 74176; 80048; 80076; 80320; 82247; 82270; 82550; 82553; 82607; 82728; 82746; 83540; 83550; 83605; 83735; 84100; 84132; 84478; 84484; 85025; 85027; 85044; 86705; 86709; 87340; 90935; 93005; 94644; 99291; J0885; J1815; J2270; J2405; J3490; J8597; G0480